=== PATIENT | male | born 1990 | race Caucasian/White ===

== ENCOUNTER 2020-04-06 14:50 | Emergency (ER) | payer SELFPAY ==
[~2020-04-06] VITALS: Ht 175.3 cm; Wt 68.0 kg
--- NOTE | 2020-04-06 14:55 | NUR ---
BIB FRIEND C/O VOMITING MORE THAN 15 TIMES TODAY. PATIENT A/OX4, BREATHING EVEN AND UNLABORED, NO SOB NOTED, CHANGED INTO A GOWN,A TTACHED TO THE ARC AND GAS WELDER.
[2020-04-06] MEDS ORDERED: ONDANSETRON HCL/PF 4 MG/2 ML VIAL ONE (14:56)
--- NOTE | 2020-04-06 15:00 | NUR ---
IV LINE ESTABLISHED, BLOOD DRAWN FROM LINE AND SENT TO LAB.
--- NOTE | 2020-04-06 15:27 | NUR ---
PT IS WHEELED TO CT SCAN VIA [facility].
[2020-04-06] MEDS ORDERED: IV NS 0.9% 1,000 ML BAG IV ONE ×2 (15:30→16:30)
[2020-04-06] MEDS ORDERED: ONDANSETRON HCL/PF 4 MG/2 ML VIAL IVP ONE (15:30)
[2020-04-06 15:33] LABS: BASOPHILS % (AUTO) 1.3 % (0.0-2.0); EOSINOPHILS % (AUTO) 0.3 % (0.0-6.0); HEMATOCRIT 52 % (39-51); HEMOGLOBIN 17.9 g/dL (13.5-17.5); LYMPHOCYTES # (AUTO) 0.6 /CMM (0.8-4.8); MEAN CORPUSCULAR HGB CONC 34 g/dl (31.0-36.0); MEAN CORPUSCULAR VOLUME 97 fL (80-96); MONOCYTES # (AUTO) 0.2 /CMM (0.1-1.30); MONOCYTES % (AUTO) 5.2 % (2.0-12.0); NEUTROPHILS # (AUTO) 2.8 /CMM (1.8-8.9); NEUTROPHILS % (AUTO) 77.2 % (43.0-81.0); PLATELET COUNT (AUTO) 143 /CMM (150-450); RED BLOOD CELL COUNT(AUTO) 5.38 MIL/uL (4.5-6.0); WHITE BLOOD COUNT (AUTO) 3.6 K/uL (4.3-11.0)
[2020-04-06 15:53] LABS: CALCIUM, SERUM 9.2 mg/dL (8.5-10.1); CREATININE 1.2 mg/dL (0.6-1.3); POTASSIUM 3.6 mmol/L (3.5-5.1)
[2020-04-06 15:59] LABS: BILIRUBIN,DIRECT 0.3 mg/dL (0.0-0.2); BILIRUBIN,TOTAL 1.7 mg/dL (0.2-1.0); TOTAL PROTEIN, SERUM 8.6 g/dL (6.4-8.2)
--- NOTE | 2020-04-06 16:03 | NUR ---
PATIENT UNABLE TO GIVE URINE SAMPLE YET.
--- NOTE | 2020-04-06 16:06 | NUR ---
DR. DE LEON AWARE OF LOW BP. PATIENT A/OX4, VERBALLY RESPONSIVE.
[2020-04-06 16:28] LABS: BAND % (MANUAL) 11 % (0.0-5.0); LYMPHOCYTES % (MANUAL) 26 % (16-48); MONOCYTES % (MANUAL) 1 % (0-11.0); MYELOCYTES % 1 % (0-0); NEUTROPHILS % (MANUAL) 59 (42-76); REACTIVE LYMPHOCYTES 2 % (0-0)
[2020-04-06] MEDS ORDERED: ACETAMINOPHEN ES 500 MG TABLET ONE (16:56)
[2020-04-06] MEDS ORDERED: ACETAMINOPHEN ES 500 MG TABLET PO ONE (17:00)
--- NOTE | 2020-04-06 17:16 | NUR ---
PATIENT A/OX4, BREATHING EVEN AN DUNLABORED, NO SOB NOTED, C/O MILD BODY PAIN. BP IMPROVED, IV removed. Catheter intact and site benign. Pressure and 4x4 applied to site. No bleeding noted.Patient discharged to home in stable condition. Written and verbal after care instructions given. Patient verbalizes understanding of instruction. Patient assisted via wheelchair to the car.
[2020-04-06 17:17] VITALS: BP 100/58
== END 2020-04-06 17:18 | disposition home or self-care (01) ==
LOC: ER 14:53
DX: U07.1 COVID-19 (principal); R11.10 Vomiting, unspecified; K44.9 Diaphragmatic hernia without obstruction or gangrene; D72.819 Decreased white blood cell count, unspecified
CPT/HCPCS: 36415; 71045; 74176; 80048; 80076; 83690; 85007; 85025; 87426; 96361; 96374; 99285; C9803; J2405; J7030 ×2